=== PATIENT | female | born 1990 | race Hispanic/Latino ===

== ENCOUNTER 2017-10-08 07:53 | Day surgery (SDC) | payer OTHER ==
--- NOTE | 2017-10-08 07:30 | Short Stay Summary ---
Short Stay Documentation Date of service: 10/08/17 - History H&P: obtained from office Past Medical History: No medical history Past Surgical History: tonsillectomy Social history: - Allergies and Medications Current Medications: Allergies No Known Allergies Allergy (Unverified 10/06/17 17:23) Home Medications Medication Instructions Recorded Confirmed Last Taken Type Levothyroxine [Synthroid] 50 mcg PO QAM 10/06/17 10/06/17 Unknown History - Physical exam General appearance: no acute distress Integumentary: no rash, no growths Lungs: Clear to auscultation, Normal air movement Breasts: deferred Heart: Regular rate, Normal S1, Normal S2 Gastrointestinal: normal, normoactive bowel sounds Female Genitourinary: deferred Rectal Exam: deferred - Brief post op/procedure progress note Date of procedure: 10/08/17 Pre-op diagnosis: Undesired fertility Post-op diagnosis: same Procedure: Laparoscopic bilateral partial salpingectomy Anesthesia: GETA Findings: normal uterus tubes and ovaries Surgeon: KETURAH FELTON Estimated blood loss: none Pathology: list (right and left tubes) Specimen disposition: to lab Condition: stable - Hospital course Hospital course: unremarkable - Disposition Condition at discharge: Good Disposition: DC-[id number] TO HOME OR SELFCARE Short Stay Discharge Plan Activity: advance as tolerated Weight Bearing Status: Weight Bear as Tolerated Diet: regular Wound: keep clean and dry Follow up with: KETURAH FELTON MD [Staff Physician] - 14 Days Prescriptions: HYDROcodone/ACETAMINOPHEN [[place] 7.5-325 Tablet] 1 each PO Q6H #20 tablet Ibuprofen [Motrin] 800 mg PO Q8HR PRN #40 tablet PRN Reason: Pain
[2017-10-08] MEDS ORDERED: ANCEF/STERILE WATER 2 GM/20 ML 2 GM/20 ML SYRINGE IV NR (08:00)
[2017-10-08] MEDS ORDERED: MARCAINE 0.25% INFILTRATI ONE ×2 (08:36→09:29)
[2017-10-08] MEDS ORDERED: ZEMURON IV ONE (08:41)
[2017-10-08] MEDS ORDERED: DIPRIVAN 10 MG/ML IV ONE (08:41)
[2017-10-08] MEDS ORDERED: ZOFRAN ONE (08:41)
[2017-10-08] MEDS ORDERED: SUBLIMAZE ONE (08:41)
[2017-10-08] MEDS ORDERED: VERSED ONE (08:41)
[2017-10-08] MEDS ORDERED: DECADRON ONE (08:41)
[2017-10-08] MEDS ORDERED: QUELICIN ONE (08:41)
[2017-10-08] MEDS ORDERED: NACL BACTERIOSTATIC INFILTRATI ONE (08:53)
[2017-10-08] MEDS ORDERED: ZOFRAN IV PRN (08:56)
[2017-10-08] MEDS ORDERED: DILAUDID IV PRN (08:56)
[2017-10-08] MEDS ORDERED: PEPCID IV NR (09:00)
[2017-10-08] MEDS ORDERED: TRANSDERM-SCOP TD NR (09:00)
[2017-10-08] MEDS ORDERED: DECADRON IV NR (09:00)
[2017-10-08] MEDS ORDERED: NACL 0.9% 1000 ML 1,000 ML IV SCH (09:00)
--- NOTE | 2017-10-08 09:09 | Anesthesia Consultation ---
Anesthesia Consult and Med Hx Date of service: 10/08/17 - Airway ROM Head & Neck: Adequate Mental/Hyoid Distance: Adequate Mallampati Class: Class I Intubation Access Assessment: Good - Pulmonary Exam CTA: Yes - Cardiac Exam Cardiac Exam: RRR - Pre-Operative Health Status ASA Pre-Surgery Classification: ASA2 Proposed Anesthetic Plan: General - Pulmonary Hx Smoking: No Hx Asthma: No Hx Respiratory Symptoms: No Home Oxygen Therapy: No - Cardiovascular System Hx Hypertension: No Hx Coronary Artery Disease: No Hx Heart Attack/AMI: No - Central Nervous System Hx Seizures: No Hx Psychiatric Problems: No - Gastrointestinal Hx Ulcer: No - Endocrine Hx Renal Disease: No Hx Liver Disease: No Hx Non-Insulin Dependent Diabetes: No Hx Hypothyroidism: Yes (Hishimoto's disease) - Other Systems Hx Alcohol Use: Yes (occas) Hx Substance Use: No Hx Cancer: No Hx Obesity: No
--- NOTE | 2017-10-08 09:17 | Anesthesia Day of Surgery ---
Anesthesia Day of Surgery - Day of Surgery Patient Examined: Yes Patient H&P Reviewed: Yes Patient is NPO: Yes
[2017-10-08] MEDS ORDERED: NACL 0.9% IR ONE (09:29)
[2017-10-08] MEDS ORDERED: ROBINUL ONE ×2 (10:13→10:17)
[2017-10-08] MEDS ORDERED: TORADOL ONE (10:13)
[2017-10-08] MEDS ORDERED: NEOSTIGMINE ONE (10:17)
--- NOTE | 2017-10-08 10:28 | Operative Report ---
Operative Report Operative Report: Preoperative diagnosis: Undesired fertility Postoperative diagnosis: Same Procedure: Bilateral laparoscopic salpingectomy Surgeon: Debo Leblanc Anesthesia: General EBL: Minimal IV fluids: 1000 Urine output:[100] Findings:[Normal uterus tubes and ovaries] Specimens: Portion of right and left fallopian tube Complications: None The patient was properly identified as herself. She was then taken to the OR with IV running and in place. She was given general anesthesia without difficulty. She was placed in a dorsal lithotomy position. She was then prepped and draped in normal sterile fashion. Attention was turned to the patient's vagina. Her bladder was drained of clear urine with a red rubber catheter. The speculum was then placed the patient's vagina. The cervix was visualized and grasped with tenaculum. The acorn cannula was then inserted. The surgeon's gloves were changed and attention turned to the patient's abdomen. A small incision was made in the patient's umbilicus incision a 5 mm trocar was placed. The laparoscope confirmed intra-abdominal placement. The abdomen was insufflated with CO2 gas to approximately 25 mmHg. Both fallopian tubes were identified. With direct visualization a second trocar was placed through an incision in the left lower quadrant. Both tubes were found and followed out to the fimbriated ends. Each tube was cauterized at the portion nearest the cornua, then cauterized across the broad ligament until the tube was completely detached. There was excellent hemostasis at the end of this portion of the procedure. Each tube was handed off for pathology. At this point the abdomen was deflated. All instruments were then removed from the abdomen. The incisions were then closed with 4-0 Monocryl. The incisions were also injected with quarter percent Marcaine. The patient tolerated the procedure well she was then awakened and taken recovery in stable condition. Sponge needle and instrument counts were correct 2.
[2017-10-08 11:27] VITALS: BP 108/63
--- NOTE | 2017-10-08 11:56 | Post Anesthesia Evaluation ---
- Post Anesthesia Evaluation Patient Participated: Yes Airway Patent: Yes Stable Respiratory Function: Yes Nausea/Vomiting: No Temp > 96.8F: Yes Pain Manageable: Yes Adequeate Hydration: Yes Anesthesia Complications: No
== END 2017-10-08 11:57 | disposition home or self-care (01) ==
LOC: OR 07:53
PROVIDERS: ATTEND Obstetrics & Gynecology
DX: Z30.2 Encounter for sterilization (principal); E06.3 Autoimmune thyroiditis
CPT/HCPCS: 81025; 88302; J0330; J0690; J1100; J1885; J2250; J2405; J2704; J2710; J3010; J7030